=== PATIENT | male | born 1955 | race Caucasian/White ===

== ENCOUNTER 2017-03-27 13:44 | Emergency (ER) | payer OTHER ==
[~2017-03-27] VITALS: Ht 172.7 cm; Wt 95.3 kg
[2017-03-27] MEDS ORDERED: KETOROLAC 60 MG/2 ML VIAL. IM ONE (14:00)
--- NOTE | 2017-03-27 14:11 | PHYS DOC ---
Past History Past Medical History: Diabetes Past Surgical History: No Surgical History Smoking: Cigarettes, Less than 1pk/day Alcohol Use: Occasionally Drug Use: None Adult General Chief Complaint Chief Complaint: KNEE INJURY [facility] HPI Patient is a pleasant 61-year-old diabetic male with a knee injury that sustained yesterday while at work. 3 weeks ago patient sustained a valgus type stress injury like landing on the ground while he was shoveling snow. He was seen by his PCP for intrinsic right knee pain that is gotten better. He has some difficulty walking at the time there is no injury and even had an MRI completed that demonstrated no internal injuries to the knee. Yesterday while walking to the alf he was struck from behind by a heart which caused him to fall causing a valgus stress on the knee causing some inflammation and a popping sound on the inside of the right knee. Since that time he said some instability in the joint and pain with walking prescription is a 7 of 10 of achy sharp pain over the medial aspect of the knee. He's noted localized swelling and decreased range of motion secondary to pain. He denies any numbness and tingling below the injury denies any other injuries. Review of Systems Review of Systems Constitutional: Denies fever or chills [] Eyes: Denies change in visual acuity, redness, or eye pain [] HENT: Denies nasal congestion or sore throat [] Respiratory: Denies cough or shortness of breath [] Cardiovascular: No additional information not addressed in HPI [] GI: Denies abdominal pain, nausea, vomiting, bloody stools or diarrhea [] : Denies dysuria or hematuria [] Musculoskeletal: Denies back pain his main complaint is right knee pain on the medial aspect of the knee Integument: Denies rash or skin lesions [] Neurologic: Denies headache, focal weakness or sensory changes [] Endocrine: Denies polyuria or polydipsia [] All other systems were reviewed and found to be within normal limits, except as documented in this note. Allergies Allergies Allergies Coded Allergies Type Severity Reaction Last Updated Verified No Known Drug Allergies 03/27/17 No Physical Exam Physical Exam Other vital signs on the chart patient brought hypertensive Constitutional: Well developed, well nourished, no acute distress, non-toxic appearance. [] HENT: Normocephalic, atraumatic, Cardiovascular:Heart rate regular rhythm, no murmur [] Lungs & Thorax: Bilateral breath sounds clear to auscultation [] Skin: Warm, dry, no erythema, no rash. [] Extremities: he has tenderness to palpation over the medial aspect of knee with noted swelling to the medial and inferior aspects of the patella there is no crepitus along the patella itself is no obvious bony deformity. Patient has an negative anterior posterior draw but has a positive lateral stress test over the medial collateral ligament with increased pain localized inflammation and swelling. Patient with a positive Rosina's test as well Neurologic: Alert and oriented X 3, normal motor function, normal sensory function, no focal deficits noted. [] Psychologic: Affect normal, judgement normal, mood normal. [] EKG EKG [] Radiology/Procedures Radiology/Procedures [] [address] [address] IMAGING REPORT Signed PATIENT: NNAMDI LUNDBERG ACCOUNT: [id number] : 1955 LOCATION: ER AGE: 61 SEX: M EXAM STATUS: PRE ER ORD. PHYSICIAN: AALIYAH MENDOZA MD REASON: trauma PROCEDURE: KNEE RIGHT 3V Right knee, 3 views, 03/27/2017: History: Fall, knee pain No fracture or dislocation is identified. There is minimal posterior patellar spurring. No definite joint effusion is seen. IMPRESSION: No acute bony abnormality is detected. DICTATED AND SIGNED BY: VIV MANZANARES MD DATE: 03/27/17 2774 CC: AALIYAH MENDOZA MD; TAMMY BERRY MD ~ Course & Med Decision Making Course & Med Decision Making Pertinent Labs and Imaging studies reviewed. (See chart for details) []Although the patient is recently had x-rays and MRI done of his right knee after a fall 3 weeks ago, he sustained a new injury to this right knee and a valgus stress with popping sensation of locking sensation within the medial collateral ligament and meniscus. I concern based on physical exam findings isn' t internal ligament injury and now meniscal tear. Patient will be placed in knee immobilizer after x-rays are completed he'll be given anti-inflammatory and encouraged follow-up with orthopedics. X-rays negative reviewed by me for signs of fracture or dislocation. inFormation passed along to patient. Patient will be referred to surgery. My discharge plan Follow up: In addition patient is asked to followup with their primary doctor, within a week for followup examination and to address patient's ongoing medical conditions. Patient is advised that in the Emergency Department primary complaints are addressed and only in light of known signs and symptoms. Patient should return immediately to the emergency department if new signs and symptoms develop or patient's condition worsens in any way. At time of discharge patient was in stable condition and had verbalized understanding of the discharge instructions. Although there is no acute fracture noted on x-ray today this does not mean subtle fractures are not missed on initial presentation. If your symptoms are not improved within 1 week or if symptoms worsen despite oral treatment with pain medications I would advise follow-up with your primary care doctor to have a repeat set of x-rays completed to ensure no subtle fractures were missed. Please understand that sometimes x-rays are missed red and if there is a misreading of your x-rays she will be contacted by the emergency room physician to talk about appropriate treatment. Dragon Disclaimer Dragon Disclaimer This electronic medical record was generated, in whole or in part, using a voice recognition dictation system. Departure Departure: Impression: Primary Impression: Knee injury Additional Impression: Internal derangement of knee Disposition: 01 HOME, SELF-CARE Condition: IMPROVED Referrals: TAMMY BERRY MD (PCP) Patient Instructions: Combined Knee Ligament Sprain-SportsMed, Knee Bracing, Knee Effusion, [id number], Knee Immobilization Additional Instructions: discharge: I've spoken with the patient and/or caregivers. I've explained the patient's condition, diagnosis and treatment plan based on information available to me at this time. I've answered the patient's and/or caregivers questions and addressed any concerns. The patient and/or caregivers have a good understanding the patient's diagnosis, condition and treatment plan as can be expected at this point. Vital signs have been stabilized. The patient's condition is stable for discharge from the emergency department. The patient will pursue further outpatient evaluation with her primary care provider or other designated consulting physician as outlined in the discharge instructions. Patient and/or caregivers are agreeable to this plan of care and follow-up instructions have been explained in detail. The patient and/or caregivers have received these instructions in written format and expressed understanding of these discharge instructions. The patient and her caregivers are aware that if any significant change in condition or worsening of symptoms should prompt him to immediately return to this of the closest emergency department. If an emergent department is not readily available I would encourage him to call 911. Scripts Naproxen Sodium (NAPROXEN SODIUM) 275 Mg Tablet 275 MG PO BID for 7 Days, #14 TAB Prov: AALIYAH MENDOZA MD 03/27/17 Hydrocodone Bit/Acetaminophen (HYDROCODONE-APAP 5-325 ) 1 Each Tablet 1 TAB PO PRN Q6HRS Y for PAIN for 5 Days, #10 TAB 0 Refills Prov: AALIYAH MENDOZA MD 03/27/17 Problem Qualifiers AALIYAH MENDOZA MD Mar 27, 2017 14:11
--- NOTE | 2017-03-27 14:18 | RAD ---
Right knee, 3 views, 03/27/2017: History: Fall, knee pain No fracture or dislocation is identified. There is minimal posterior patellar spurring. No definite joint effusion is seen. IMPRESSION: No acute bony abnormality is detected.
[2017-03-27 14:21] VITALS: BP 138/74
[2017-03-27] MEDS ORDERED: NAPR275T59 PO (14:47)
[2017-03-27] MEDS ORDERED: HYDR-2758 PO (14:47)
== END 2017-03-27 15:07 | disposition home or self-care (01) ==
LOC: ER 13:44
DX: S89.91XA Unspecified injury of right lower leg, initial encounter (principal); M23.91 Unspecified internal derangement of right knee; E11.9 Type 2 diabetes mellitus without complications; F17.210 Nicotine dependence, cigarettes, uncomplicated; W18.09XA Striking against other object with subsequent fall, initial encounter; Y93.89 Activity, other specified; Y99.8 Other external cause status; Y92.89 Other specified places as the place of occurrence of the external cause
CPT/HCPCS: 29505; 73562; 96372; 99284; J1885

== ENCOUNTER 2017-11-23 08:53 | Emergency (ER) | payer OTHER ==
[~2017-11-23] VITALS: Ht 172.7 cm; Wt 95.3 kg
[~2017-11-23 08:53] MED LIST: HYDR-2758 PO; NAPR275T59 PO
[2017-11-23] MEDS ORDERED: DIPHTH,PERTUSS(ACELL),TET TOX 0.5 ML DISP.SYRIN. VAX IM ONE (10:15)
--- NOTE | 2017-11-23 10:42 | RAD ---
EXAM: Right shoulder, 3 views. HISTORY: Fall. COMPARISON: None. FINDINGS: 3 views of the right shoulder obtained. There is no fracture, dislocation or subluxation. There are inferiorly directed acromioclavicular spurs. IMPRESSION: 1. No acute osseous finding. 2. Right acromioclavicular osteoarthritis with inferiorly directed spurs. Electronically signed by: Bushra Suárez MD (11/23/2017 10:39 AM) [facility]
[2017-11-23] MEDS ORDERED: HYDROcodone/APAP 5/325MG 1 TAB TABLET PO ONE (10:45)
--- NOTE | 2017-11-23 10:45 | RAD ---
EXAM: Head and cervical spine CT without contrast. HISTORY: Fall. TECHNIQUE: Computed tomographic images of the head and cervical spine were obtained without contrast. *One or more of the following individualized dose reduction techniques were utilized for this examination: 1. Automated exposure control. 2. Adjustment of the mA and/or kV according to patient size. 3. Use of iterative reconstruction technique. COMPARISON: None. FINDINGS: Head: There is no hemorrhage. There is no mass effect or midline shift. There is no hydrocephalus. The ford-white matter differentiation pattern is intact. There is evidence of lens surgery. The mastoid air cells are clear. There is moderate left maxillary and mild bilateral ethmoid sinus mucosal thickening. There is a small sphenoid sinus mucus retention cyst. No suspicious calvarial lesion is seen. Cervical spine: There is mild anterolisthesis of C7 on T1. There is degenerative endplate remodeling with disc space narrowing and osteophytosis at C5-C6 and C6-C7. There is facet arthropathy at multiple levels. There is no fracture. There is no suspicious osseous lesion. At C2-C3, there is a left paracentral predominant disc bulge and endplate remodeling. There is moderate to severe left facet arthropathy. There is mild left foraminal stenosis. At C3-C4, there is a disc bulge and endplate remodeling. There is mild right and moderate left facet arthropathy. There is mild left foraminal stenosis. At C4-C5, there is a right paracentral disc osteophyte complex superimposed on a disc bulge and endplate remodeling. There is mild right and moderate left facet arthropathy. There is mild right greater than left foraminal stenosis. At C5-C6, there is a disc bulge and endplate osteophytosis. There is mild left facet arthropathy. There is bilateral uncovertebral arthropathy. There is moderate to severe right and moderate left foraminal stenosis. At C6-C7, there is a disc bulge and endplate osteophytosis. There is bilateral uncovertebral therapy. There is mild to moderate right and moderate to severe left foraminal stenosis. IMPRESSION: 1. No acute intracranial finding or evidence of acute cervical spine trauma. 2. Multilevel degenerative change involving the cervical spine, described above. Electronically signed by: Bushra Suárez MD (11/23/2017 10:42 AM) [facility]
--- NOTE | 2017-11-23 11:16 | PHYS DOC ---
Past History Past Medical History: Diabetes Past Surgical History: No Surgical History Smoking: Cigarettes, Less than 1pk/day Alcohol Use: Occasionally Drug Use: None Adult General Chief Complaint Chief Complaint: MECHANICAL FALL HPI HPI Patient is a 61 year old male who presents with complaining of injury to right upper extremity and back. 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 Patient denies loss of consciousness and complaining of pain in his back and right shoulder and right wrist with abrasion of his back and right hand and rated his pain 8/10. Patient is not up- to-date with tetanus immunization. Review of Systems Review of Systems Constitutional: Denies fever or chills [] Eyes: Denies change in visual acuity, redness, or eye pain [] HENT: Denies nasal congestion or sore throat [] Respiratory: Denies cough or shortness of breath [] Cardiovascular: No additional information not addressed in HPI [] GI: Denies abdominal pain, nausea, vomiting, bloody stools or diarrhea [] : Denies dysuria or hematuria [] Musculoskeletal: Denies back pain or joint pain [] Integument: Denies rash or skin lesions [] Neurologic: Denies headache, focal weakness or sensory changes [] Endocrine: Denies polyuria or polydipsia [] All other systems were reviewed and found to be within normal limits, except as documented in this note. Current Medications Current Medications Current Medications Medications (Trade) Dose Ordered Sig/Jennifer Start Time Stop Time Status Last Admin Dose Admin Acetaminophen/ Hydrocodone Bitart (Lortab 5/325) 1 tab 1X ONCE 11/23/17 10:45 11/23/17 10:46 DC Diphtheria/ Tetanus/Acell Pertussis (Boostrix) 0.5 ml ONCE ONCE 11/23/17 10:15 11/23/17 10:28 DC Allergies Allergies Allergies Coded Allergies Type Severity Reaction Last Updated Verified No Known Drug Allergies 03/27/17 No Physical Exam Physical Exam Constitutional: Well developed, well nourished, mild distress, non-toxic appearance. [] HENT: Normocephalic, atraumatic, oropharynx moist, no oral exudates, nose normal. [] Eyes: PERRLA, EOMI, conjunctiva normal, no discharge. [] Neck: Normal range of motion, no tenderness, supple, no stridor. [] Cardiovascular:Heart rate regular rhythm, no murmur [] Lungs & Thorax: Bilateral breath sounds clear to auscultation [] Abdomen: Bowel sounds normal, soft, no tenderness, no masses, no pulsatile masses. [] Skin: Warm, dry, no erythema, no rash. [] Back: No tenderness, no CVA tenderness, several areas of abrasion in the lower thoracic spine without midline tenderness. [] Extremities: Right hand abrasion, right his tenderness, right shoulder limited range of motion of abduction secondary to pain, no cyanosis, no clubbing, no edema. [] Neurologic: Alert and oriented X 3, normal motor function, normal sensory function, no focal deficits noted. [] Psychologic: Affect normal, judgement normal, mood normal. [] Current Patient Data Vital Signs Vital Signs Date Time Temp Pulse Resp B/P (MAP) Pulse Ox O2 Delivery O2 Flow Rate FiO2 11/23/17 10:06 98.2 110 18 98 Room Air EKG EKG [] Radiology/Procedures Radiology/Procedures [address] [address] IMAGING REPORT Signed PATIENT: NNAMDI LUNDBERG ACCOUNT: [id number] : 1955 LOCATION: ER AGE: 61 SEX: M EXAM STATUS: REG ER ORD. PHYSICIAN: FAIHT MACKAY MD REASON: fall PROCEDURE: CT HEAD AND CERVICAL SPINE WO EXAM: Head and cervical spine CT without contrast. HISTORY: Fall. TECHNIQUE: Computed tomographic images of the head and cervical spine were obtained without contrast. *One or more of the following individualized dose reduction techniques were utilized for this examination: 1. Automated exposure control. 2. Adjustment of the mA and/or kV according to patient size. 3. Use of iterative reconstruction technique. COMPARISON: None. FINDINGS: Head: There is no hemorrhage. There is no mass effect or midline shift. There is no hydrocephalus. The ford-white matter differentiation pattern is intact. There is evidence of lens surgery. The mastoid air cells are clear. There is moderate left maxillary and mild bilateral ethmoid sinus mucosal thickening. There is a small sphenoid sinus mucus retention cyst. No suspicious calvarial lesion is seen. Cervical spine: There is mild anterolisthesis of C7 on T1. There is degenerative endplate remodeling with disc space narrowing and osteophytosis at C5-C6 and C6-C7. There is facet arthropathy at multiple levels. There is no fracture. There is no suspicious osseous lesion. At C2-C3, there is a left paracentral predominant disc bulge and endplate remodeling. There is moderate to severe left facet arthropathy. There is mild left foraminal stenosis. At C3-C4, there is a disc bulge and endplate remodeling. There is mild right and moderate left facet arthropathy. There is mild left foraminal stenosis. At C4-C5, there is a right paracentral disc osteophyte complex superimposed on a disc bulge and endplate remodeling. There is mild right and moderate left facet arthropathy. There is mild right greater than left foraminal stenosis. At C5-C6, there is a disc bulge and endplate osteophytosis. There is mild left facet arthropathy. There is bilateral uncovertebral arthropathy. There is moderate to severe right and moderate left foraminal stenosis. At C6-C7, there is a disc bulge and endplate osteophytosis. There is bilateral uncovertebral therapy. There is mild to moderate right and moderate to severe left foraminal stenosis. IMPRESSION: 1. No acute intracranial finding or evidence of acute cervical spine trauma. 2. Multilevel degenerative change involving the cervical spine, described above. Electronically signed by: Bushra Calix MD (11/23/2017 10:42 AM) [facility] DICTATED AND SIGNED BY: BUSHRA CALIX MD DATE: 11/23/17 1039 CC: TAMMY BERRY MD; FAITH MACKAY MD ~ [address] [address] IMAGING REPORT Signed PATIENT: NNAMDI LUNDBERG ACCOUNT: [id number] : 1955 LOCATION: ER AGE: 61 SEX: M EXAM STATUS: REG ER ORD. PHYSICIAN: FAITH MACKAY MD REASON: injury PROCEDURE: SHOULDER 2+V RIGHT EXAM: Right shoulder, 3 views. HISTORY: Fall. COMPARISON: None. FINDINGS: 3 views of the right shoulder obtained. There is no fracture, dislocation or subluxation. There are inferiorly directed acromioclavicular spurs. IMPRESSION: 1. No acute osseous finding. 2. Right acromioclavicular osteoarthritis with inferiorly directed spurs. Electronically signed by: Bushra Calix MD (11/23/2017 10:39 AM) [facility] DICTATED AND SIGNED BY: BUSHRA CALIX MD DATE: 11/23/17 1038 CC: TAMMY BERRY MD; FAITH MACKAY MD ~ [address] [id number] IMAGING REPORT Signed PATIENT: NNAMDI LUNDBERG ACCOUNT: [id number] : 1955 LOCATION: ER AGE: 61 SEX: M EXAM STATUS: REG ER ORD. PHYSICIAN: FAITH MACKAY MD REASON: injury PROCEDURE: THORACIC SPINE 3V EXAM: Thoracic spine, 3 views. HISTORY: Fall. COMPARISON: None. FINDINGS: Frontal, lateral and swimmer's views of the thoracic spine are obtained. There is mild S-shaped thoracic scoliosis. There is no listhesis. The vertebral bodies are normal in height and the disc spaces are preserved. IMPRESSION: 1. Mild S-shaped thoracic scoliosis. 2. No acute osseous finding. Electronically signed by: Bushra Calix MD (11/23/2017 12:07 PM) [facility] DICTATED AND SIGNED BY: BUSHRA CALIX MD DATE: 11/23/17 120 CC: TAMMY BERRY MD; FAITH MACKAY MD ~ [address] [address] IMAGING REPORT Signed PATIENT: NNAMDI LUNDBERG ACCOUNT: [id number] : 1955 LOCATION: ER AGE: 61 SEX: M EXAM STATUS: REG ER ORD. PHYSICIAN: FAITH MACKAY MD REASON: injury PROCEDURE: WRIST 3V RIGHT EXAM: WRIST 3V RIGHT. HISTORY: Fall with right wrist pain. COMPARISON: None. FINDINGS: The first metacarpal is shortened, likely developmentally. The trapezoid and trapezium appear to been resected. A lucency within the distal radius suggests a small intraosseous cyst or prominent vascular channel and measures 7 mm. This appears benign. No fractures are identified. IMPRESSION: 1. No fracture or malalignment. 2. Resection of the trapezium and trapezoid. Electronically signed by: Petra Lugo MD (11/23/2017 12:09 PM) [facility] DICTATED AND SIGNED BY: FRED LUGO MD DATE: 11/23/17 0264 CC: TAMMY BERRY MD; FAITH MACKAY MD ~ Course & Med Decision Making Course & Med Decision Making Pertinent Imaging studies reviewed. (See chart for details) Evaluation of patient in ER showed 7-year-old male patient injury to upper extremity and back after fall at his work. X-ray and CT was unremarkable. Patient treated with Eckerty and felt better. Tetanus immunization updated in ER. Plan discharge patient home with diagnosis of contusion and sprain and abrasion. Dragon Disclaimer Dragon Disclaimer This electronic medical record was generated, in whole or in part, using a voice recognition dictation system. Departure Departure: Impression: Primary Impression: Contusion of back Additional Impressions: Sprain of right shoulder Right wrist sprain Thoracic sprain Tobacco abuse Tobacco abuse counseling Disposition: 01 HOME, SELF-CARE (at 1200) Condition: IMPROVED Referrals: TAMMY BERRY MD (PCP) Patient Instructions: Abrasions, Contusion Additional Instructions: Apply ice on the affected area Follow-up with your primary care physician in 3-5 days Return to ER if not getting better Scripts Hydrocodone Bit/Acetaminophen (NORCO 5-325 TABLET) 1 Each Tablet 1 TAB PO PRN Q6HRS PRN for PAIN, #14 TAB 0 Refills Prov: FAITH MACKAY MD 11/23/17 Problem Qualifiers FAITH MACKAY MD Nov 23, 2017 11:16
[2017-11-23] MEDS ORDERED: HYDR-971 PO (12:03)
--- NOTE | 2017-11-23 12:10 | RAD ---
EXAM: Thoracic spine, 3 views. HISTORY: Fall. COMPARISON: None. FINDINGS: Frontal, lateral and swimmer's views of the thoracic spine are obtained. There is mild S-shaped thoracic scoliosis. There is no listhesis. The vertebral bodies are normal in height and the disc spaces are preserved. IMPRESSION: 1. Mild S-shaped thoracic scoliosis. 2. No acute osseous finding. Electronically signed by: Bushra Suárez MD (11/23/2017 12:07 PM) [facility]
--- NOTE | 2017-11-23 12:12 | RAD ---
EXAM: WRIST 3V RIGHT. HISTORY: Fall with right wrist pain. COMPARISON: None. FINDINGS: The first metacarpal is shortened, likely developmentally. The trapezoid and trapezium appear to been resected. A lucency within the distal radius suggests a small intraosseous cyst or prominent vascular channel and measures 7 mm. This appears benign. No fractures are identified. IMPRESSION: 1. No fracture or malalignment. 2. Resection of the trapezium and trapezoid. Electronically signed by: Petra Lugo MD (11/23/2017 12:09 PM) [facility]
[2017-11-23 12:25] VITALS: BP 120/75
== END 2017-11-23 12:26 | disposition home or self-care (01) ==
LOC: ER 08:53
DX: S23.3XXA Sprain of ligaments of thoracic spine, initial encounter (principal); S43.401A Unspecified sprain of right shoulder joint, initial encounter; S63.501A Unspecified sprain of right wrist, initial encounter; S30.0XXA Contusion of lower back and pelvis, initial encounter; F17.210 Nicotine dependence, cigarettes, uncomplicated; M19.011 Primary osteoarthritis, right shoulder; M41.84 Other forms of scoliosis, thoracic region; E11.9 Type 2 diabetes mellitus without complications; Z71.6 Tobacco abuse counseling; W19.XXXA Unspecified fall, initial encounter; Y93.89 Activity, other specified; Y92.148 Other place in prison as the place of occurrence of the external cause; Y99.0 Civilian activity done for income or pay
CPT/HCPCS: 70450; 72072; 72125; 73030; 73110; 90471; 90715; 99284-25

== ENCOUNTER → 2019-04-28 | Outpatient (CLI) | payer BC ==
[~2019-04-28] MED LIST changes: +HYDR-2155 PO; -HYDR-2758 PO; +HYDR-3165 PO
--- NOTE | 2019-04-28 11:06 | RAD ---
CHEST PA LATERAL History: Cough and shortness of breath Comparison: 08/19/2013 two-view chest x-ray exam. Findings: Frontal and lateral views of the chest were obtained. The cardiomediastinal silhouette is normal. Pulmonary vasculature is normal. The lungs are clear. No pleural effusion or pneumothorax is seen. There is no acute bone abnormality. Pulmonary hyperinflation is noted. Proximal descending thoracic aortic aneurysm is present measuring up to 5.7 cm anteroposterior on the lateral view. Notable increase in diameter of the proximal descending thoracic aorta is evident since the prior exam. Opacity overlying the aorticopulmonary window which likely correlates to the aneurysm is evident. Tortuosity of the thoracic aorta is present. IMPRESSION: COPD. Proximal descending thoracic aortic aneurysm. Opacity overlying the aorticopulmonary window region which probably relates of the aneurysm. Further evaluation with CTA of the chest is recommended for further care assessment and to exclude a mass. Electronically signed by: Brody Dang MD (04/28/2019 11:03 AM) [id number]
== END | disposition home or self-care (01) ==
LOC: DXRAD 10:27
PROVIDERS: ATTEND Family Medicine
DX: R05 Cough (principal); I71.2 Thoracic aortic aneurysm, without rupture; R06.02 Shortness of breath; Q25.46 Tortuous aortic arch
CPT/HCPCS: 71046

== ENCOUNTER → 2020-02-08 | Outpatient (CLI) | payer OTHER ==
--- NOTE | 2020-02-08 09:28 | RAD ---
Chest radiograph 02/08/2020 8:21 AM INDICATION: Cardiac thoracic ratio, aneurysm COMPARISON: 04/28/2019 TECHNIQUE: Frontal and lateral views of the chest are provided. FINDINGS: The cardiomediastinal silhouette is within normal limits. Descending thoracic aortic aneurysm measure s 5.9 cm in AP dimension. Cardiac silhouette to thoracic ratio measures 0.4. There are no pleural effusions. There is no pulmonary vascular congestion. There is no pneumothorax. The lungs are clear. No significant osseous abnormality is identified. IMPRESSION: No acute cardiopulmonary process. Descending thoracic aortic aneurysm measures 5.9 cm. Electronically signed by: Cheryl Tijerina MD (02/08/2020 9:25 AM) [facility]
== END ==
LOC: DXRAD 08:14
PROVIDERS: ATTEND Family Medicine
DX: I71.2 Thoracic aortic aneurysm, without rupture (principal)
CPT/HCPCS: 71046

== ENCOUNTER → 2020-05-23 | Outpatient (CLI) | payer MEDICARE, OTHER ==
[~2020-05-23] MED LIST changes: +IOHEXOL 350 MG/ML 100 ML VIAL. IV ONE
[2020-05-23 08:25] LABS: CREATININE 0.9 mg/dL (0.7-1.3); GFR 85.2
--- NOTE | 2020-05-23 10:20 | RAD ---
CT angiography of the chest, abdomen, and pelvis 05/23/2020 INDICATION: Thoracic aortic aneurysm COMPARISON STUDY: PA and lateral chest radiograph February 08, 2020. TECHNIQUE: Multidetector CT imaging of the chest, abdomen, and pelvis was performed. Chest imaging wa s performed with and without contrast. Abdominal pelvic imaging was performed following the administr ation of contrast. 3-D reconstructions of thoracic, abdominal, and pelvic vasculature were created on an independent workstation and reviewed. FINDINGS: Neither the thoracic or abdominal aorta demonstrate evidence of dissection. Motion is seen predominantly involving the ascending thoracic aorta. There is a "bovine" configuration of the thorac ic aortic arch. At the sinotubular junction the thoracic aorta measures 2.6 cm. At the level the main pulmonary artery the thoracic aorta measures 3 cm. The level of the left subclavian artery the thora cic aorta measures 2.5 cm. The descending thoracic aorta is significantly irregular in contour with m ultiple areas of soft plaque. Calcification is minimal. The maximal diameter of the descending thorac ic aorta is approximately 4.9 cm. Irregularity continues throughout the descending thoracic aorta jus t above the diaphragm the thoracic aorta returns to normal caliber measuring 2.8 cm in diameter. The abdominal aorta demonstrates no aneurysm or dissection. Celiac artery, SMA, bilateral renal arteries, and LIGIA are patent. The bilateral common, external, and internal iliac arteries are patent. The bila teral common femoral arteries are patent. Heart size is normal. No pericardial effusion is identified. No pathologically enlarged mediastinal a denopathy is seen. There is no pneumothorax. There is no pleural effusion. No focal infiltrates are s een. Solid viscera of the abdomen demonstrate no acute abnormality. 2.9 cm left renal cyst noted. The re is no bowel obstruction. Appendix is unremarkable. Bladder is unremarkable. No free fluid or free air seen in the abdomen or pelvis. No acute osseous changes are seen. IMPRESSION: Descending thoracic aortic aneurysm measuring up to 4.9 cm in diameter. There is no abdo carly aortic aneurysm. There is no aortic dissection. CT DOSING PQRS STATEMENT: One or more of the following individualized dose reduction techniques were utilized for this examinat ion: 1. Automated exposure control 2. Adjustment of the mA and/or kV according to patient size 3. Use of iterative reconstruction technique Electronically signed by: Corby Arellano MD (05/23/2020 10:17 AM) [id number]
[2020-05-23 13:50] LABS: CALCIUM 8.8 mg/dL (8.5-10.1); PHOSPHORUS 2.9 mg/dL (2.6-4.7); POTASSIUM 4.1 mmol/L (3.5-5.1)
== END ==
LOC: CT 07:01
PROVIDERS: ATTEND Surgery Vascular Surgery
DX: I71.2 Thoracic aortic aneurysm, without rupture (principal); I71.4 Abdominal aortic aneurysm, without rupture; E11.65 Type 2 diabetes mellitus with hyperglycemia; N28.1 Cyst of kidney, acquired
CPT/HCPCS: 36415; 71275; 74177; 80069; Q9967